=== PATIENT | female | born 1970 | race African-American/Black ===

== ENCOUNTER 2020-12-01 13:53 | Emergency (ER) | payer OTHER, SELFPAY ==
[2020-12-01 15:06] LABS: BUN Blood Urea Nitrogen 15 mg/dL (7-18); Bicarbonate 26 mmol/L (21-32); Glucose Level 134 mg/dL (74-106); Potassium 3.7 mmol/L (3.5-5.1); Sodium Level 140 mmol/L (136-145)
[2020-12-01 15:13] LABS: Absolute Lymphocytes (CBC) 3.9 K/uL (0.7-4.9); Basophils % 0.8 % (0-1.3); MPV 9.6 fL (7.6-11.3); RBC Red Blood Cell Count 4.18 M/uL (3.86-4.86)
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
[2020-12-01] MEDS ORDERED: ACETAMINOPHEN 325 MG TABLET ONE (15:37)
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
[2020-12-01 16:38] VITALS: TEMP 97.8
[2020-12-01 16:39] VITALS: BP 122/56; O2SAT 100
== END 2020-12-01 16:22 | disposition home or self-care (01) ==
LOC: ER 13:53
DX: S16.1XXA Strain of muscle, fascia and tendon at neck level, initial encounter (principal); S29.012A Strain of muscle and tendon of back wall of thorax, initial encounter; V49.40XA Driver injured in collision with unspecified motor vehicles in traffic accident, initial encounter; Z88.5 Allergy status to narcotic agent; F17.210 Nicotine dependence, cigarettes, uncomplicated
CPT/HCPCS: 85025; 80048; 36415; 82565; 70450; 72125; 71260; 74177; 99284; Q9967